=== PATIENT | female | born 1965 | race Hispanic/Latino ===

== ENCOUNTER 2018-07-05 14:13 | Inpatient (IN) | payer BC, OTHER ==
[~2018-07-05] VITALS: Ht 165.1 cm; Wt 91.2 kg
[2018-07-05 14:57] LABS: BASOPHILS % (AUTO) 0.8 % (0.0-5.0); EOSINOPHILS % (AUTO) 0.7 % (0.0-8.0); HEMATOCRIT 37.5 % (36-48); LYMPHOCYTES % (AUTO) 15.8 % (21.0-51.0); MEAN CORPUSCULAR HGB CONC 31.1 g/dL (32.0-36.0); MEAN CORPUSCULAR VOLUME 73.8 fL (79-99); MONOCYTES % (AUTO) 3.5 % (3.0-13.0); NEUTROPHILS % (AUTO) 79.2 % (40.0-77.0); NUCLEATED RED BLOOD CELLS 0.1 % (0.0-0.19); PLATELET COUNT (AUTO) 303 K/uL (130-400); RED BLOOD CELL COUNT(AUTO) 5.08 MIL/uL (4.00-5.50); RED CELL DISTRIBUTION WIDTH 17.2 % (11.0-15.5); WHITE BLOOD COUNT (AUTO) 8.7 K/uL (4.8-10.8)
[2018-07-05] MEDS ORDERED: ACETAMINOPHEN 325 MG TAB ONE (15:05)
[2018-07-05 15:18] LABS: CREATININE 1.1 mg/dL (0.5-1.5); POTASSIUM 4.4 mmol/L (3.5-5.1)
[2018-07-05 15:19] LABS: ALBUMIN 3.4 g/dL (3.5-5.0); BILIRUBIN,DIRECT 0.1 mg/dL (0.0-0.3); BILIRUBIN,TOTAL 0.5 mg/dL (0.2-1.0); TOTAL PROTEIN, SERUM 8.4 g/dL (6.0-8.3)
[2018-07-05 15:28] LABS: APPEARANCE,URINE Clear (CLEAR); BILIRUBIN,URINE Negative (NEGATIVE); COLOR,URINE Yellow (YELLOW); GLUCOSE, URINE (UA) >=1000 mg/dL (NEGATIVE); KETONES,URINE Trace mg/dL (NEGATIVE); LEUKOCYTE ESTERASE ,URINE Negative (NEGATIVE); NITRATE,URINE Negative (NEGATIVE); OCCULT BLOOD,URINE Negative (NEGATIVE); PH,URINE 6.5 (5.0-8.0); PROTEIN,URINE Negative (NEGATIVE); UROBILINOGEN,URINE 0.2 mg/dL (0.2-1.0)
[2018-07-05 15:35] LABS: AMPHET/METH SCREEN,URINE NEGATIVE (NEGATIVE); BARBITURATE SCREEN, URINE NEGATIVE (NEGATIVE); BENZODIAZEPINES SCREEN,URINE NEGATIVE (NEGATIVE); CANNABINOID SCREEN,URINE NEGATIVE (NEGATIVE); COCAINE SCREEN,URINE NEGATIVE (NEGATIVE); OPIATE SCREEN,URINE NEGATIVE (NEGATIVE); PHENCYCLIDINE SCREEN,URINE NEGATIVE (NEGATIVE)
[2018-07-05 15:50] LABS: BACTERIA,URINE Rare /HPF (None Seen); RBC,URINE 0-1 /HPF (0-1); SQUAMOUS EPITHELIAL CELL,UR Rare /HPF (0-2); WBC,URINE 0-1 /HPF (0-1); YEAST,URINE BUDDING Rare /HPF (None Seen)
[2018-07-05] MEDS ORDERED: INSULIN HUMULIN R 100 UNIT/ML 3ML ONE ×2 (16:07→17:37)
[2018-07-05] MEDS ORDERED: SODIUM CHLORIDE 0.9% 1000ML 2,000 ML IV ONE (16:08)
[2018-07-05 16:19] LABS: B-TYPE NATRIURETIC PEPTIDE < 5 pg/mL (0-100)
[2018-07-05 16:26] LABS: ABG BASE EXCESS -0.9 mmol/L (-2.0-3.0); ABG OXYGEN SATURATION 97.5 % (95.0-99.0); ABG PCO2 36 mmHg (32-45)
[2018-07-05] MEDS: SODIUM CHLORIDE 0.9% 1000ML 1,000 ML IV SCH (17:27)
[2018-07-05] MEDS ORDERED: ACETAMINOPHEN 325 MG TAB PO PRN ×2 (17:30)
[2018-07-05] MEDS ORDERED: DIPHENHYDRAMINE HCL 25 MG CAPSULE PO PRN (17:30)
[2018-07-05] MEDS ORDERED: ONDANSETRON HCL 4 MG/2 ML VIAL IV PRN (17:30)
[2018-07-05] MEDS ORDERED: DiphenhydrAMINE HCL 50 MG/ML VIAL IV PRN (17:30)
[2018-07-05] MEDS ORDERED: LIDOCAINE HCL-MPF 1% 2ML VIAL IVP PRN (17:45)
[2018-07-05] MEDS ORDERED: GLUCAGON 1MG KIT 1 MG ML IM PRN (17:45)
[2018-07-05] MEDS ORDERED: POTASSIUM CHLORIDE 20 MEQ ERTAB PO PRN (17:45)
[2018-07-05] MEDS ORDERED: POTASSIUM CHLORIDE 10% ELIXIR 20 MEQ/15 ML UDCUP PO PRN (17:45)
[2018-07-05] MEDS ORDERED: POTASSIUM CHLORIDE 20MEQ/100ML 100 ML IV PRN (17:45)
[2018-07-05] MEDS ORDERED: DEXTROSE 50%-WATER 50 ML DISP.SYRIN IV PRN (17:45)
[2018-07-05] MEDS ORDERED: SODIUM CHLORIDE 0.9% 1000ML 1,000 ML IV ONE (20:06)
[2018-07-05 20:19] LABS: HEMOGLOBIN A1C 13.6 % (4.0-6.0)
[2018-07-05] MEDS ORDERED: INSULIN GLARGINE 100 UNITS/ML 10 ML VIAL SQ SCH (21:00)
[2018-07-05 21:55] VITALS: BP 131/76
[2018-07-05] MEDS: INSULIN HUMULIN R 100 UNIT/ML 3ML SQ SCH (22:52)
[2018-07-05] MEDS: FAMOTIDINE 20MG TAB 20 MG TAB PO SCH (23:04)
[2018-07-05 23:29] VITALS: BP 111/67
[2018-07-06 04:26] VITALS: BP 98/57
[2018-07-06] MEDS: SODIUM CHLORIDE 0.9% 1000ML 1,000 ML IV SCH ×2 (05:36→15:04)
[2018-07-06] MEDS: INSULIN HUMULIN R 100 UNIT/ML 3ML SQ SCH ×4 (06:33→23:20)
[2018-07-06 06:46] LABS: CHOLESTEROL 126 mg/dL (<200); HDL CHOLESTEROL 31 mg/dL (35-85); LDL DIRECT 75 mg/dL (0-99); TRIGLYCERIDES 179 mg/dL (30-200)
[2018-07-06 07:41] VITALS: BP 96/63
[2018-07-06] MEDS ORDERED: INSULIN GLARGINE 100 UNITS/ML 10 ML VIAL SQ SCH ×3 (08:00→20:54)
[2018-07-06] MEDS: FAMOTIDINE 20MG TAB 20 MG TAB PO SCH (08:33)
[2018-07-06 08:35] LABS: CREATININE 0.7 mg/dL (0.5-1.5); POTASSIUM 3.6 mmol/L (3.5-5.1)
[2018-07-06] MEDS: METOCLOPRAMIDE 5 MG TABLET PO SCH ×3 (12:02→18:32)
[2018-07-06 12:17] VITALS: BP 106/69
[2018-07-06] MEDS: PANTOPRAZOLE SODIUM 40 MG TABLET.DR PO SCH (12:50)
--- NOTE | 2018-07-06 14:17 | NUR ---
INITIAL: Met with pt this afternoon to discuss dcp. Pt states that she lives alone. She is independent w ambulation and ADLs. She does not own any DME or receive services. 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 Pt states that she feels safe and comfortable to return home at or. She mentions that if she needs insulin/glucose checks, she is willing to learn. CM to continue to follow and wait for Md recommendations. Addendum: 07/06/18 at 1419 by FRANKO FERRARO CM Amended: Links added.
[2018-07-06 19:40] VITALS: BP 116/66
[2018-07-06 23:44] VITALS: BP 126/76
[2018-07-07] MEDS: SODIUM CHLORIDE 0.9% 1000ML 1,000 ML IV SCH ×3 (02:24→18:17)
[2018-07-07 03:25] VITALS: BP 122/59
[2018-07-07] MEDS: INSULIN HUMULIN R 100 UNIT/ML 3ML SQ SCH ×4 (06:34→21:00)
[2018-07-07 06:35] LABS: HEMATOCRIT 31.5 % (36-48); MEAN CORPUSCULAR HEMOGLOBIN 22.9 pg (27.0-33.0); MEAN CORPUSCULAR HGB CONC 32.1 g/dL (32.0-36.0); MEAN CORPUSCULAR VOLUME 71.1 fL (79-99); PLATELET COUNT (AUTO) 235 K/uL (130-400); RED BLOOD CELL COUNT(AUTO) 4.43 MIL/uL (4.00-5.50); RED CELL DISTRIBUTION WIDTH 17.8 % (11.0-15.5); WHITE BLOOD COUNT (AUTO) 6.5 K/uL (4.8-10.8)
[2018-07-07 06:44] LABS: CREATININE 0.6 mg/dL (0.5-1.5)
[2018-07-07 07:47] VITALS: BP 100/68
--- NOTE | 2018-07-07 08:30 | NUR ---
INSTRUCTIONS WERE GIVEN ON DIABETES AND LIFESTYLE CHANGES. RETURNED UNDERSTANDING.
[2018-07-07] MEDS ORDERED: ROSU5TAB11 PO (08:31)
[2018-07-07] MEDS ORDERED: LISI2.5T2 PO (08:31)
[2018-07-07] MEDS: METOCLOPRAMIDE 5 MG TABLET PO SCH ×3 (08:58→17:00)
[2018-07-07] MEDS: PANTOPRAZOLE SODIUM 40 MG TABLET.DR PO SCH (08:58)
[2018-07-07] MEDS: POTASSIUM CHLORIDE 20 MEQ ERTAB PO SCH ×3 (09:00→22:36)
[2018-07-07 11:46] VITALS: BP 107/62
[2018-07-07 16:11] VITALS: BP 119/61
[2018-07-07] MEDS ORDERED: INSULIN GLARGINE 100 UNITS/ML 10 ML VIAL SQ SCH (16:45)
[2018-07-07 20:41] VITALS: BP 127/70
[2018-07-08 00:26] VITALS: BP 125/77
[2018-07-08 03:37] VITALS: BP 111/66
[2018-07-08] MEDS: SODIUM CHLORIDE 0.9% 1000ML 1,000 ML IV SCH (04:39)
[2018-07-08 06:08] LABS: CREATININE 0.5 mg/dL (0.5-1.5); POTASSIUM 3.6 mmol/L (3.5-5.1)
[2018-07-08] MEDS: INSULIN HUMULIN R 100 UNIT/ML 3ML SQ SCH ×3 (06:53→18:26)
[2018-07-08] MEDS: METOCLOPRAMIDE 5 MG TABLET PO SCH ×3 (06:53→17:00)
[2018-07-08 07:30] VITALS: BP 104/68
[2018-07-08] MEDS: POTASSIUM CHLORIDE 20 MEQ ERTAB PO SCH ×2 (08:27→14:00)
[2018-07-08] MEDS: PANTOPRAZOLE SODIUM 40 MG TABLET.DR PO SCH (08:27)
[2018-07-08 11:00] VITALS: BP 115/71
[2018-07-08] MEDS ORDERED: INSLAN SQ (14:11)
[2018-07-08 16:00] VITALS: BP 113/70
--- NOTE | 2018-07-08 16:49 | NUR ---
Diet education RD provided Diabetes Diet education. RD reviewed reference materials and handouts with patient. Patient with many questions. RD answered all of patient's questions. Patient verbalized understanding. RD to continue to monitor. Please notify RD as additional nutritional concerns arise. Thank you. Addendum: 07/08/18 at [address] RD Amended: Links added.
[2018-07-09] MEDS ORDERED: INSULIN GLARGINE 100 UNITS/ML 10 ML VIAL SQ ONE (08:00)
== END 2018-07-08 19:00 | disposition home or self-care (01) | DRG 640 ==
LOC: EDH 14:13 → EDHIP 14:14 → 3CH 20:09
PROVIDERS: ADMIT Internal Medicine; ATTEND Internal Medicine
DX: E86.0 Dehydration (principal); E11.00 Type 2 diabetes mellitus with hyperosmolarity without nonketotic hyperglycemic-hyperosmolar coma (NKHHC); E11.43 Type 2 diabetes mellitus with diabetic autonomic (poly)neuropathy; K31.84 Gastroparesis; Z79.4 Long term (current) use of insulin; Z83.3 Family history of diabetes mellitus; Z79.899 Other long term (current) drug therapy
CPT/HCPCS: 36415; 36600; 74176; 80048; 80061; 80076; 80305; 81001; 82150; 82550; 82803; 82948; 83036; 83605; 83690; 83880; 84484; 85025; 85027; 93005; G0378; J1815; J3480; J3490; J7030

== ENCOUNTER 2019-06-07 12:03 | Emergency (ER) | payer BC, OTHER ==
[~2019-06-07 12:03] MED LIST: INSLAN SQ; LISI2.5T2 PO; ROSU5TAB12 PO
[2019-06-07 12:33] LABS: APPEARANCE,URINE Cloudy (CLEAR); BILIRUBIN,URINE Negative (NEGATIVE); COLOR,URINE Yellow (YELLOW); GLUCOSE, URINE (UA) >=1000 mg/dL (NEGATIVE); KETONES,URINE 40 mg/dL (NEGATIVE); LEUKOCYTE ESTERASE ,URINE Small (NEGATIVE); NITRATE,URINE Negative (NEGATIVE); OCCULT BLOOD,URINE Negative (NEGATIVE); PROTEIN,URINE Trace mg/dL (NEGATIVE)
[2019-06-07 12:45] LABS: BACTERIA,URINE Few /HPF (None Seen); RBC,URINE None Seen /HPF (0-1); YEAST,URINE BUDDING Moderate /HPF (None Seen)
[2019-06-07 12:49] LABS: BASOPHILS % (AUTO) 0.4 % (0.0-5.0); EOSINOPHILS % (AUTO) 1.8 % (0.0-8.0); HEMATOCRIT 37.5 % (36-48); LYMPHOCYTES % (AUTO) 29.1 % (21.0-51.0); MEAN CORPUSCULAR HEMOGLOBIN 22.3 pg (27.0-33.0); MEAN CORPUSCULAR HGB CONC 30.1 g/dL (32.0-36.0); MONOCYTES % (AUTO) 4.6 % (3.0-13.0); NEUTROPHILS % (AUTO) 63.8 % (40.0-77.0); PLATELET COUNT (AUTO) 324 K/uL (130-400); RED BLOOD CELL COUNT(AUTO) 5.07 MIL/uL (4.00-5.50); RED CELL DISTRIBUTION WIDTH 16.6 % (11.0-15.5); WHITE BLOOD COUNT (AUTO) 7.6 K/uL (4.8-10.8)
[2019-06-07] MEDS ORDERED: INSULIN HUMULIN R 100 UNIT/ML 3ML ONE (12:50)
[2019-06-07 13:03] LABS: CREATININE 0.8 mg/dL (0.5-1.5); POTASSIUM 3.7 mmol/L (3.5-5.1)
[2019-06-07 13:07] LABS: ALBUMIN 3.2 g/dL (3.5-5.0); BILIRUBIN,TOTAL 0.3 mg/dL (0.2-1.0); TOTAL PROTEIN, SERUM 7.8 g/dL (6.0-8.3)
== END 2019-06-07 14:56 | disposition home or self-care (01) ==
LOC: EDH 12:03
DX: E11.65 Type 2 diabetes mellitus with hyperglycemia (principal); F32.9 Major depressive disorder, single episode, unspecified; Z79.84 Long term (current) use of oral hypoglycemic drugs
CPT/HCPCS: 36415; 80053; 81001; 82010; 82948 ×2; 83605; 85025; 87088; 96361; 96374; 99283; J1815

== ENCOUNTER 2019-11-12 12:40 | Emergency (ER) | payer OTHER ==
[2019-11-12] MEDS ORDERED: MORPHINE SULFATE 4 MG/1ML SYG ONE ×2 (13:23→17:08)
[2019-11-12 13:27] LABS: BASOPHILS % (AUTO) 0.5 % (0.0-5.0); EOSINOPHILS % (AUTO) 0.3 % (0.0-8.0); HEMATOCRIT 40.8 % (36-48); LYMPHOCYTES % (AUTO) 15.4 % (21.0-51.0); MEAN CORPUSCULAR HGB CONC 32.1 g/dL (32.0-36.0); MEAN CORPUSCULAR VOLUME 77.9 fL (79-99); NEUTROPHILS % (AUTO) 75.1 % (40.0-77.0); PLATELET COUNT (AUTO) 298 K/uL (130-400); RED BLOOD CELL COUNT(AUTO) 5.24 MIL/uL (4.00-5.50); RED CELL DISTRIBUTION WIDTH 14.6 % (11.0-15.5); WHITE BLOOD COUNT (AUTO) 10.8 K/uL (4.8-10.8)
[2019-11-12 13:57] LABS: CREATININE 0.8 mg/dL (0.5-1.5); POTASSIUM 3.7 mmol/L (3.5-5.1)
[2019-11-12 14:03] LABS: ALBUMIN 2.7 g/dL (3.5-5.0); BILIRUBIN,TOTAL 0.7 mg/dL (0.2-1.0); TOTAL PROTEIN, SERUM 7.7 g/dL (6.0-8.3)
[2019-11-12] MEDS ORDERED: LIDOCAINE HCL 2% VISCOUS 15 ML UDCUP ONE (14:29)
[2019-11-12] MEDS ORDERED: MAG HYDROX/AL HYDROX/SIMETH ES 30 ML SUSP UDCUP ONE (14:29)
[2019-11-12] MEDS ORDERED: ONDANSETRON HCL 4 MG/2 ML VIAL ONE (14:29)
[2019-11-12] MEDS ORDERED: FAMOTIDINE/PF 20 MG/2 ML VIAL IV ONE (14:30)
[2019-11-12] MEDS ORDERED: SODIUM CHLORIDE 0.9% 1000ML 1,000 ML IV ONE ×2 (15:15→19:07)
[2019-11-12] MEDS ORDERED: INSULIN HUMULIN R 100 UNIT/ML 3ML ONE (15:15)
[2019-11-12] MEDS ORDERED: IOHEXOL-350 75 ML VIAL IV ONE (16:04)
[2019-11-12 16:46] LABS: APPEARANCE,URINE Clear (CLEAR); BILIRUBIN,URINE Negative (NEGATIVE); COLOR,URINE Yellow (YELLOW); GLUCOSE, URINE (UA) >=1000 mg/dL (NEGATIVE); KETONES,URINE >=80 mg/dL (NEGATIVE); LEUKOCYTE ESTERASE ,URINE Trace (NEGATIVE); NITRATE,URINE Negative (NEGATIVE); OCCULT BLOOD,URINE Negative (NEGATIVE); PH,URINE 6.5 (5.0-8.0); PROTEIN,URINE POS 1+ mg/dL (NEGATIVE)
[2019-11-12 16:54] LABS: BACTERIA,URINE Few /HPF (None Seen); RBC,URINE 0-1 /HPF (0-1)
[2019-11-12 16:55] LABS: MUCUS,URINE Rare LPF (None Seen); SQUAMOUS EPITHELIAL CELL,UR Few /HPF (0-2)
[2019-11-12] MEDS ORDERED: ZOSYN 3.375GM+NS 50ML 50 ML IV ONE (18:27)
== END 2019-11-12 22:51 | disposition short-term general hospital (02) ==
LOC: EDH 12:40
DX: K86.2 Cyst of pancreas (principal); K56.699 Other intestinal obstruction unspecified as to partial versus complete obstruction; E11.65 Type 2 diabetes mellitus with hyperglycemia; E86.0 Dehydration; F32.9 Major depressive disorder, single episode, unspecified; Z79.84 Long term (current) use of oral hypoglycemic drugs; Z86.19 Personal history of other infectious and parasitic diseases
CPT/HCPCS: 36415; 74177; 80053; 81001; 82550; 83605; 83690; 84484; 85025; 87088; 93005; 96361; 96365; 96375; 96376; 99285; J1815; J2270 ×2; J2405; J2543; J3490; J7030 ×2; Q9967

== ENCOUNTER 2019-12-07 13:46 | Emergency (ER) | payer OTHER ==
[2019-12-07] MEDS ORDERED: IOHEXOL 350 MG/ML 100ML INFUS..BTL IV ONE (14:29)
[2019-12-07] MEDS ORDERED: ONDANSETRON HCL 4 MG/2 ML VIAL ONE (14:40)
[2019-12-07] MEDS ORDERED: SODIUM CHLORIDE 0.9% 1000ML 1,000 ML IV ONE ×2 (14:40→16:05)
[2019-12-07] MEDS ORDERED: MORPHINE SULFATE 4 MG/1ML SYG ONE (14:40)
[2019-12-07 14:50] LABS: BASOPHILS % (AUTO) 0.6 % (0.0-5.0); EOSINOPHILS % (AUTO) 1.3 % (0.0-8.0); HEMATOCRIT 33.8 % (36-48); LYMPHOCYTES % (AUTO) 28.3 % (21.0-51.0); MEAN CORPUSCULAR HGB CONC 31.1 g/dL (32.0-36.0); MEAN CORPUSCULAR VOLUME 77.2 fL (79-99); MONOCYTES % (AUTO) 13.7 % (3.0-13.0); NEUTROPHILS % (AUTO) 54.6 % (40.0-77.0); PLATELET COUNT (AUTO) 322 K/uL (130-400); RED BLOOD CELL COUNT(AUTO) 4.38 MIL/uL (4.00-5.50); RED CELL DISTRIBUTION WIDTH 14.4 % (11.0-15.5); WHITE BLOOD COUNT (AUTO) 7.2 K/uL (4.8-10.8)
[2019-12-07 14:57] LABS: APPEARANCE,URINE CLOUDY (CLEAR); BILIRUBIN,URINE MODERATE (NEGATIVE); COLOR,URINE YELLOW (YELLOW); GLUCOSE, URINE (UA) 100 mg/dL (NEGATIVE); KETONES,URINE 15 mg/dL (NEGATIVE); LEUKOCYTE ESTERASE ,URINE TRACE (NEGATIVE); NITRATE,URINE NEGATIVE (NEGATIVE); OCCULT BLOOD,URINE NEGATIVE (NEGATIVE); PROTEIN,URINE 100 mg/dL (NEGATIVE)
[2019-12-07 15:02] LABS: CREATININE 0.7 mg/dL (0.5-1.5); POTASSIUM 3.4 mmol/L (3.5-5.1)
[2019-12-07 15:03] LABS: INR 1.04 (0.85-1.15); PARTIAL THROMBOPLASTIN TIME 25.7 SEC (26.3-35.5); PROTHROMBIN TIME 11.2 SEC (9.6-11.6)
[2019-12-07 15:06] LABS: ALBUMIN 2.3 g/dL (3.5-5.0); BILIRUBIN,TOTAL 0.4 mg/dL (0.2-1.0); TOTAL PROTEIN, SERUM 8.4 g/dL (6.0-8.3)
[2019-12-07 15:14] LABS: BACTERIA,URINE Few /HPF (None Seen); MUCUS,URINE Many LPF (None Seen); SQUAMOUS EPITHELIAL CELL,UR Many /HPF (0-2)
[2019-12-07] MEDS ORDERED: ZOSYN 3.375GM+NS 50ML 50 ML IV ONE (15:17)
== END 2019-12-07 19:38 | disposition short-term general hospital (02) ==
LOC: EDH 13:46
DX: K86.9 Disease of pancreas, unspecified (principal); K91.89 Other postprocedural complications and disorders of digestive system; R11.2 Nausea with vomiting, unspecified; R19.7 Diarrhea, unspecified; Z20.828 Contact with and (suspected) exposure to other viral communicable diseases; E11.9 Type 2 diabetes mellitus without complications; F32.9 Major depressive disorder, single episode, unspecified; Z98.890 Other specified postprocedural states
CPT/HCPCS: 36415; 74177; 80053; 81001; 82550; 83690; 84484; 85025; 85610; 85730; 87040 ×2; 87426; 96361; 96365; 96375; 99285; J2270; J2405; J2543; J7030 ×2; Q9967; U0003

== ENCOUNTER 2019-12-22 16:05 | Emergency (ER) | payer OTHER | END 2019-12-22 16:53 | disposition left against medical advice (07) | LOC: EDH 16:05 | DX: E11.65 Type 2 diabetes mellitus with hyperglycemia (principal); F32.9 Major depressive disorder, single episode, unspecified; Z98.890 Other specified postprocedural states; Z86.19 Personal history of other infectious and parasitic diseases | CPT/HCPCS: 82948; 99282 ==

== ENCOUNTER 2020-02-22 09:22 | Inpatient (IN) | payer BC, OTHER ==
[~2020-02-22] VITALS: Ht 162.6 cm; Wt 86.4 kg
[2020-02-22] MEDS ORDERED: ONDANSETRON HCL 4 MG/2 ML VIAL ONE (10:20)
[2020-02-22] MEDS ORDERED: HYDROMORPHONE HCL 0.5 MG/0.5 ML ML ONE (10:20)
[2020-02-22 10:39] LABS: BASOPHILS % (AUTO) 0.7 % (0.0-5.0); EOSINOPHILS % (AUTO) 0.6 % (0.0-8.0); HEMATOCRIT 37.8 % (36-48); LYMPHOCYTES % (AUTO) 30.1 % (21.0-51.0); MEAN CORPUSCULAR HEMOGLOBIN 23.2 pg (27.0-33.0); MEAN CORPUSCULAR HGB CONC 30.7 g/dL (32.0-36.0); MEAN CORPUSCULAR VOLUME 75.8 fL (79-99); MONOCYTES % (AUTO) 6.2 % (3.0-13.0); NEUTROPHILS % (AUTO) 62.1 % (40.0-77.0); PLATELET COUNT (AUTO) 483 K/uL (130-400); RED BLOOD CELL COUNT(AUTO) 4.99 MIL/uL (4.00-5.50); RED CELL DISTRIBUTION WIDTH 16.2 % (11.0-15.5); WHITE BLOOD COUNT (AUTO) 6.8 K/uL (4.8-10.8)
[2020-02-22 11:20] LABS: ALBUMIN 3.5 g/dL (3.5-5.0); BILIRUBIN,TOTAL 0.4 mg/dL (0.2-1.0); CREATININE 0.7 mg/dL (0.5-1.5); POTASSIUM 3.7 mmol/L (3.5-5.1); TOTAL PROTEIN, SERUM 8.5 g/dL (6.0-8.3)
[2020-02-22] MEDS ORDERED: ACETAMINOPHEN 325 MG TAB PO PRN (14:45)
[2020-02-22] MEDS ORDERED: LACTULOSE 20 GM/30 ML UDCUP PO PRN (14:45)
[2020-02-22] MEDS ORDERED: FAMOTIDINE/PF 20 MG/2 ML VIAL IV ONE (19:57)
[2020-02-22] MEDS: FAMOTIDINE/PF 20 MG/2 ML VIAL IV SCH (21:00)
[2020-02-23] MEDS ORDERED: KETOROLAC TROMETHAMINE 15MG/ML ONE (00:12)
[2020-02-23 03:15] VITALS: BP 111/55
[2020-02-23] MEDS ORDERED: SAXA1TBM2 PO (03:16)
[2020-02-23] MEDS: LACTATED RINGERS 1000ML 1,000 ML IV SCH ×2 (03:45→07:25)
[2020-02-23 06:58] LABS: BASOPHILS % (AUTO) 0.8 % (0.0-5.0); EOSINOPHILS % (AUTO) 2.9 % (0.0-8.0); HEMATOCRIT 35.5 % (36-48); LYMPHOCYTES % (AUTO) 44.4 % (21.0-51.0); MEAN CORPUSCULAR HEMOGLOBIN 23.4 pg (27.0-33.0); MEAN CORPUSCULAR VOLUME 75.5 fL (79-99); MONOCYTES % (AUTO) 6.9 % (3.0-13.0); NEUTROPHILS % (AUTO) 44.5 % (40.0-77.0); PLATELET COUNT (AUTO) 416 K/uL (130-400); RED CELL DISTRIBUTION WIDTH 16.3 % (11.0-15.5); WHITE BLOOD COUNT (AUTO) 6.2 K/uL (4.8-10.8)
[2020-02-23] MEDS: KETOROLAC TROMETHAMINE 15MG/ML IV PRN ×2 (07:06→21:45)
[2020-02-23] MEDS: METFORMIN HCL 500 MG TABLET PO SCH ×2 (07:06→17:00)
[2020-02-23 07:31] LABS: ALBUMIN 2.8 g/dL (3.5-5.0); BILIRUBIN,TOTAL 0.3 mg/dL (0.2-1.0); CREATININE 0.7 mg/dL (0.5-1.5); POTASSIUM 3.7 mmol/L (3.5-5.1); TOTAL PROTEIN, SERUM 7.2 g/dL (6.0-8.3)
[2020-02-23 08:11] VITALS: BP 109/64
[2020-02-23] MEDS ORDERED: SAXAGLIPTIN HCL PO SCH (09:00)
[2020-02-23] MEDS ORDERED: METFORMIN HCL PO SCH (09:00)
[2020-02-23] MEDS ORDERED: [UNRECOGNIZED DRUG - OTHER] PO SCH (09:00)
[2020-02-23] MEDS: FAMOTIDINE/PF 20 MG/2 ML VIAL IV SCH ×2 (09:30→20:50)
[2020-02-23] MEDS: LINAGLIPTIN 5 MG TABLET PO SCH (09:30)
[2020-02-23 11:37] VITALS: BP 93/59
[2020-02-23 17:01] VITALS: BP 102/63
[2020-02-23] MEDS ORDERED: HYDROMORPHONE 1 MG/1 ML AMP IVP PRN (17:15)
[2020-02-23 20:00] VITALS: BP 104/62
[2020-02-23 23:46] VITALS: BP 102/62
[2020-02-24] VITALS (14 sets, daily range): BP systolic 93–115; BP diastolic 41–70
[2020-02-24] MEDS: LACTATED RINGERS 1000ML 1,000 ML IV SCH ×2 (00:19→16:07)
[2020-02-24 05:48] LABS: BASOPHILS % (AUTO) 0.9 % (0.0-5.0); EOSINOPHILS % (AUTO) 2.5 % (0.0-8.0); HEMATOCRIT 32.3 % (36-48); LYMPHOCYTES % (AUTO) 53.6 % (21.0-51.0); MEAN CORPUSCULAR HEMOGLOBIN 23.7 pg (27.0-33.0); MEAN CORPUSCULAR HGB CONC 30.7 g/dL (32.0-36.0); MEAN CORPUSCULAR VOLUME 77.3 fL (79-99); NEUTROPHILS % (AUTO) 34.8 % (40.0-77.0); PLATELET COUNT (AUTO) 359 K/uL (130-400); RED BLOOD CELL COUNT(AUTO) 4.18 MIL/uL (4.00-5.50); RED CELL DISTRIBUTION WIDTH 16.1 % (11.0-15.5); WHITE BLOOD COUNT (AUTO) 4.4 K/uL (4.8-10.8)
[2020-02-24 06:21] LABS: ALBUMIN 2.7 g/dL (3.5-5.0); BILIRUBIN,TOTAL 0.3 mg/dL (0.2-1.0); CREATININE 0.7 mg/dL (0.5-1.5); POTASSIUM 3.4 mmol/L (3.5-5.1); TOTAL PROTEIN, SERUM 6.7 g/dL (6.0-8.3)
[2020-02-24] MEDS: LINAGLIPTIN 5 MG TABLET PO SCH (07:47)
[2020-02-24] MEDS: METFORMIN HCL 500 MG TABLET PO SCH ×2 (07:47→16:10)
[2020-02-24 08:00] LABS: INR 1.1 (0.85-1.15); PROTHROMBIN TIME 11.7 SEC (9.6-11.6)
[2020-02-24] MEDS: FAMOTIDINE/PF 20 MG/2 ML VIAL IV SCH ×2 (08:47→20:58)
[2020-02-24] MEDS ORDERED: LIDOCAINE PF 2% 5ML ABBOJECT ONE ×2 (10:53→13:12)
[2020-02-24] MEDS ORDERED: GLYCOPYRROLATE 1 MG/5 ML SYRINGE ONE ×2 (10:53→13:50)
[2020-02-24] MEDS ORDERED: ONDANSETRON HCL 4 MG/2 ML VIAL ONE ×2 (10:53→13:50)
[2020-02-24] MEDS ORDERED: DEXAMETHASONE SOD PHOSPHATE 10MG/ML 1ML VIAL ONE (10:53)
[2020-02-24] MEDS ORDERED: SUCCINYLCHOLINE CHLORIDE 20 MG/ML 10 ML VIAL ONE ×2 (10:53→13:12)
[2020-02-24] MEDS ORDERED: MIDAZOLAM HCL 1 MG/ML 2ML VIAL ONE ×3 (10:54→18:40)
[2020-02-24] MEDS ORDERED: PROPOFOL 10 MG/ML 20ML VIAL IV ONE ×2 (10:54→13:12)
[2020-02-24] MEDS ORDERED: FENTANYL CITRATE PF 50 MCG/1 ML 2ML VIAL ONE ×2 (10:54→14:26)
[2020-02-24] MEDS ORDERED: ROCURONIUM 10MG/1ML SYR 10 MG/ML ML ONE ×3 (10:54→14:22)
[2020-02-24] MEDS ORDERED: NEOSTIGMINE 5MG/5ML SYR IV ONE ×2 (10:54→13:50)
[2020-02-24] MEDS ORDERED: SODIUM CHLORIDE 0.9% 1000ML 1,000 ML IV ONE (12:48)
[2020-02-24] MEDS: ZOSYN 3.375GM+NS 50ML 50 ML IV ONE (13:22)
[2020-02-24] MEDS ORDERED: ROPIVACAINE 0.5% 5MG/ML 30ML IJ ONE ×2 (13:34→16:01)
[2020-02-24] MEDS ORDERED: NEOMY SULF/POLYMYXIN B SULFATE 1 ML AMPUL IR ONE (14:21)
[2020-02-24] MEDS ORDERED: ALBUMIN (HUMAN) 5% 250 ML IV ONE ×3 (14:27→18:21)
[2020-02-24] MEDS ORDERED: METHYLENE BLUE 5 MG/ML AMP ONE (16:22)
[2020-02-24] MEDS ORDERED: MEPERIDINE-PF 25 MG/ML SYG ONE (18:22)
[2020-02-24] MEDS ORDERED: NOREPINEPHRINE 4MG/NS 250ML 250 ML IV SCH (18:30)
[2020-02-24] MEDS: SODIUM CHLORIDE 0.9% 1000ML 1,000 ML IV SCH ×2 (18:41→19:30)
[2020-02-24] MEDS ORDERED: MORPHINE SULFATE 2 MG/ML 1ML SYG IVP PRN (19:30)
[2020-02-24 19:56] LABS: CREATININE 0.7 mg/dL (0.5-1.5); POTASSIUM 3.7 mmol/L (3.5-5.1)
[2020-02-24 19:59] LABS: ALBUMIN 3.1 g/dL (3.5-5.0); BILIRUBIN,TOTAL 0.5 mg/dL (0.2-1.0); TOTAL PROTEIN, SERUM 6.2 g/dL (6.0-8.3)
[2020-02-24] MEDS ORDERED: MIDAZOLAM HCL 1 MG/ML 2ML VIAL IVP ONE (20:00)
[2020-02-24] MEDS ORDERED: MEPERIDINE HCL/PF 25 MG/0.5 ML AMPUL IVP ONE (20:00)
[2020-02-24 20:30] LABS: BASOPHILS % (AUTO) 0.3 % (0.0-5.0); EOSINOPHILS % (AUTO) 0.9 % (0.0-8.0); HEMATOCRIT 31.7 % (36-48); LYMPHOCYTES % (AUTO) 10.5 % (21.0-51.0); MEAN CORPUSCULAR HEMOGLOBIN 23.4 pg (27.0-33.0); MEAN CORPUSCULAR HGB CONC 29.3 g/dL (32.0-36.0); MEAN CORPUSCULAR VOLUME 79.6 fL (79-99); MONOCYTES % (AUTO) 5.9 % (3.0-13.0); NEUTROPHILS % (AUTO) 82.1 % (40.0-77.0); PLATELET COUNT (AUTO) 505 K/uL (130-400); RED BLOOD CELL COUNT(AUTO) 3.98 MIL/uL (4.00-5.50); RED CELL DISTRIBUTION WIDTH 16.1 % (11.0-15.5); WHITE BLOOD COUNT (AUTO) 11.8 K/uL (4.8-10.8)
[2020-02-24] MEDS: ONDANSETRON HCL 4 MG/2 ML VIAL IV PRN (21:28)
[2020-02-25] VITALS (16 sets, daily range): BP systolic 112–128; BP diastolic 64–80
[2020-02-25 00:02] LABS: APPEARANCE,URINE Clear (CLEAR); BILIRUBIN,URINE Negative (NEGATIVE); COLOR,URINE Yellow (YELLOW); GLUCOSE, URINE (UA) Negative (NEGATIVE); KETONES,URINE >=160 mg/dL (NEGATIVE); LEUKOCYTE ESTERASE ,URINE Negative (NEGATIVE); NITRATE,URINE Negative (NEGATIVE); OCCULT BLOOD,URINE Negative (NEGATIVE); PROTEIN,URINE Negative (NEGATIVE)
[2020-02-25] MEDS: ONDANSETRON HCL 4 MG/2 ML VIAL IV PRN ×2 (03:39→09:45)
[2020-02-25 03:58] LABS: BASOPHILS % (AUTO) 0.2 % (0.0-5.0); EOSINOPHILS % (AUTO) 0.9 % (0.0-8.0); HEMATOCRIT 31.9 % (36-48); LYMPHOCYTES % (AUTO) 7.3 % (21.0-51.0); MEAN CORPUSCULAR HEMOGLOBIN 23.4 pg (27.0-33.0); MEAN CORPUSCULAR HGB CONC 29.5 g/dL (32.0-36.0); MEAN CORPUSCULAR VOLUME 79.4 fL (79-99); MONOCYTES % (AUTO) 6.5 % (3.0-13.0); NEUTROPHILS % (AUTO) 84.7 % (40.0-77.0); PLATELET COUNT (AUTO) 423 K/uL (130-400); RED BLOOD CELL COUNT(AUTO) 4.02 MIL/uL (4.00-5.50); RED CELL DISTRIBUTION WIDTH 16.2 % (11.0-15.5); WHITE BLOOD COUNT (AUTO) 17.3 K/uL (4.8-10.8)
[2020-02-25 04:25] LABS: ALBUMIN 3.1 g/dL (3.5-5.0); BILIRUBIN,TOTAL 0.4 mg/dL (0.2-1.0); CREATININE 0.8 mg/dL (0.5-1.5); TOTAL PROTEIN, SERUM 6.6 g/dL (6.0-8.3)
[2020-02-25] MEDS: METFORMIN HCL 500 MG TABLET PO SCH (08:00)
[2020-02-25] MEDS: LINAGLIPTIN 5 MG TABLET PO SCH (08:26)
[2020-02-25] MEDS ORDERED: PANTOPRAZOLE 40 MG/VIAL ONE (09:26)
[2020-02-25] MEDS ORDERED: ZOSYN 3.375GM+NS 50ML 50 ML IV ONE (09:27)
[2020-02-25] MEDS: PANTOPRAZOLE 40 MG/VIAL IVP SCH ×2 (09:34→21:59)
[2020-02-25] MEDS: LACTATED RINGERS 1000ML 1,000 ML IV SCH (09:34)
[2020-02-25] MEDS: ZOSYN 3.375GM+NS 50ML 50 ML IV SCH ×2 (09:34→17:32)
[2020-02-25] MEDS: SCOPOLAMINE HYDROBROMIDE 1 EACH ADH..PATCH TD SCH (09:44)
[2020-02-25] MEDS: MORPHINE SULFATE 4 MG/1ML SYG IV PRN ×4 (09:45→22:07)
[2020-02-25] MEDS ORDERED: FUROSEMIDE 10 MG/ML 4ML VIAL IV SCH (10:15)
[2020-02-25] MEDS ORDERED: GLUCAGON 1MG KIT 1 MG ML IM PRN (10:30)
[2020-02-25] MEDS ORDERED: DEXTROSE 50%-WATER 50 ML DISP.SYRIN IV PRN (10:30)
[2020-02-25] MEDS: INSULIN HUMULIN R 100 UNIT/ML 3ML SQ SCH ×3 (11:30→23:38)
[2020-02-26 00:05] VITALS: BP 138/91
[2020-02-26] MEDS: LACTATED RINGERS 1000ML 1,000 ML IV SCH ×3 (02:05→17:09)
[2020-02-26] MEDS: ZOSYN 3.375GM+NS 50ML 50 ML IV SCH ×3 (02:07→17:36)
[2020-02-26] MEDS: MORPHINE SULFATE 4 MG/1ML SYG IV PRN ×3 (02:31→10:24)
[2020-02-26 04:02] VITALS: BP 120/64
[2020-02-26 05:24] LABS: BASOPHILS % (AUTO) 0.4 % (0.0-5.0); EOSINOPHILS % (AUTO) 0.4 % (0.0-8.0); LYMPHOCYTES % (AUTO) 31.8 % (21.0-51.0); MEAN CORPUSCULAR HEMOGLOBIN 23.4 pg (27.0-33.0); MEAN CORPUSCULAR VOLUME 78.1 fL (79-99); MONOCYTES % (AUTO) 13.4 % (3.0-13.0); NEUTROPHILS % (AUTO) 53.8 % (40.0-77.0); PLATELET COUNT (AUTO) 302 K/uL (130-400); RED BLOOD CELL COUNT(AUTO) 3.33 MIL/uL (4.00-5.50); RED CELL DISTRIBUTION WIDTH 16.9 % (11.0-15.5); WHITE BLOOD COUNT (AUTO) 4.5 K/uL (4.8-10.8)
[2020-02-26 05:50] LABS: CREATININE 0.8 mg/dL (0.5-1.5); MAGNESIUM 1.5 mg/dL (1.80-2.40); POTASSIUM 3.4 mmol/L (3.5-5.1)
[2020-02-26] MEDS: INSULIN HUMULIN R 100 UNIT/ML 3ML SQ SCH ×3 (06:00→18:00)
[2020-02-26 08:00] VITALS: BP 106/76
[2020-02-26] MEDS: PANTOPRAZOLE 40 MG/VIAL IVP SCH ×2 (10:27→21:44)
[2020-02-26 11:00] VITALS: BP 101/53
[2020-02-26] MEDS ORDERED: TRAMADOL HCL 50 MG TABLET PO SCH (11:45)
[2020-02-26 16:00] VITALS: BP 110/64
[2020-02-26] MEDS: MAGNESIUM 2GM PREMIX 50ML 50 ML IV PRN (16:20)
[2020-02-26] MEDS: HYDROMORPHONE 1 MG/1 ML AMP IVP PRN ×2 (16:23→21:45)
[2020-02-26 20:00] VITALS: BP 97/61
[2020-02-26] MEDS: ENOXAPARIN SODIUM 40 MG/0.4 ML SYRINGE SQ SCH (21:44)
[2020-02-26] MEDS: KETOROLAC TROMETHAMINE 30MG/ML IV SCH (22:17)
[2020-02-27] VITALS: BP 91/50
[2020-02-27] MEDS: ZOSYN 3.375GM+NS 50ML 50 ML IV SCH ×3 (01:12→17:11)
[2020-02-27] MEDS: HYDROMORPHONE 1 MG/1 ML AMP IVP PRN ×4 (01:49→17:59)
[2020-02-27 04:00] VITALS: BP 96/56
[2020-02-27 05:57] LABS: ALANINE AMINOTRANSFERASE 17 U/L (12-78); ALBUMIN 2.1 g/dL (3.5-5.0); AMYLASE 18 U/L (25-115); ASPARTATE AMINOTRANSFERASE 11 U/L (10-37); BILIRUBIN,TOTAL 0.3 mg/dL (0.2-1.0); CARBON DIOXIDE 26 mmol/L (21-32); CHLORIDE 112 mmol/L (101-111); CREATININE 0.6 mg/dL (0.5-1.5); GLOMERULAR FILTR. RATE CALC 111 mL/min (>60); GLUCOSE,RANDOM 83 mg/dL (70-105); POTASSIUM 3.1 mmol/L (3.5-5.1); SODIUM SERUM 148 mmol/L (136-145); TOTAL PROTEIN, SERUM 5.8 g/dL (6.0-8.3); UREA NITROGEN, BLOOD 12 mg/dL (7-18)
[2020-02-27 06:00] LABS: LIPASE < 50 U/L (114-286)
[2020-02-27] MEDS: INSULIN HUMULIN R 100 UNIT/ML 3ML SQ SCH ×5 (06:00→21:00)
[2020-02-27] MEDS: KETOROLAC TROMETHAMINE 30MG/ML IV SCH ×3 (06:40→22:02)
[2020-02-27] MEDS ORDERED: LIDOCAINE HCL-MPF 1% 2ML VIAL IV PRN (08:00)
[2020-02-27 08:01] VITALS: BP 94/54
[2020-02-27] MEDS: POTASSIUM CHLORIDE 20MEQ/100ML 100 ML IV PRN (08:55)
[2020-02-27] MEDS: PANTOPRAZOLE 40 MG/VIAL IVP SCH ×3 (09:00→22:01)
[2020-02-27] MEDS ORDERED: NYSTATIN 100000 UNIT/ML 5ML UDCUP PO PRN (10:15)
[2020-02-27 11:04] VITALS: BP 111/60
[2020-02-27] MEDS ORDERED: COMPOUND IV MISC 1 EACH IVSOLN MISC PRN (11:15)
[2020-02-27] MEDS ORDERED: PHARMACY COMMUNICATION MISC SCH (11:15)
[2020-02-27] MEDS: LACTATED RINGERS 1000ML 1,000 ML IV SCH ×3 (11:25→20:36)
[2020-02-27] MEDS: NS IV SCH (12:04)
[2020-02-27] MEDS: FLUCONAZOLE IV SCH (12:04)
[2020-02-27 16:03] VITALS: BP 94/55
[2020-02-27] MEDS ORDERED: SODIUM CHLORIDE 0.9% 1000ML 1,000 ML IV SCH (18:45)
[2020-02-27] MEDS ORDERED: SODIUM CHLORIDE 0.9% 1000ML 1,000 ML IV ONE (18:46)
[2020-02-27 19:30] VITALS: BP 107/62
[2020-02-27] MEDS: ENOXAPARIN SODIUM 40 MG/0.4 ML SYRINGE SQ SCH (22:15)
[2020-02-28] VITALS: BP 102/72
[2020-02-28] MEDS: HYDROMORPHONE 1 MG/1 ML AMP IVP PRN ×3 (00:07→18:30)
[2020-02-28] MEDS ORDERED: ALBUMIN (HUMAN) 5% 500 ML IV ONE (00:15)
[2020-02-28] MEDS: ZOSYN 3.375GM+NS 50ML 50 ML IV SCH ×3 (01:53→17:26)
[2020-02-28 03:57] LABS: HEMATOCRIT 23.4 % (36-48); MEAN CORPUSCULAR HEMOGLOBIN 23.5 pg (27.0-33.0); MEAN CORPUSCULAR HGB CONC 29.5 g/dL (32.0-36.0); MEAN CORPUSCULAR VOLUME 79.9 fL (79-99); RED BLOOD CELL COUNT(AUTO) 2.93 MIL/uL (4.00-5.50); RED CELL DISTRIBUTION WIDTH 16.6 % (11.0-15.5); WHITE BLOOD COUNT (AUTO) 5.6 K/uL (4.8-10.8)
[2020-02-28 04:00] VITALS: BP 95/52
[2020-02-28 04:07] LABS: CREATININE 0.7 mg/dL (0.5-1.5); POTASSIUM 3.4 mmol/L (3.5-5.1)
[2020-02-28] MEDS: POTASSIUM CHLORIDE 20MEQ/100ML 100 ML IV PRN (05:43)
[2020-02-28] MEDS: LACTATED RINGERS 1000ML 1,000 ML IV SCH ×2 (05:53→15:34)
[2020-02-28] MEDS: KETOROLAC TROMETHAMINE 30MG/ML IV SCH ×3 (05:53→21:32)
[2020-02-28] MEDS: INSULIN HUMULIN R 100 UNIT/ML 3ML SQ SCH ×4 (06:08→21:00)
[2020-02-28 08:28] VITALS: BP 100/65
[2020-02-28] MEDS: SCOPOLAMINE HYDROBROMIDE 1 EACH ADH..PATCH TD SCH (08:30)
[2020-02-28] MEDS: PANTOPRAZOLE 40 MG/VIAL IVP SCH ×2 (08:54→21:32)
[2020-02-28 09:12] LABS: HEMATOCRIT 24.7 % (36-48)
[2020-02-28] MEDS ORDERED: IOHEXOL 350 MG/ML 100ML INFUS..BTL IV ONE (10:35)
[2020-02-28] MEDS: FLUCONAZOLE IV SCH (11:13)
[2020-02-28] MEDS: NS IV SCH (11:13)
[2020-02-28 11:52] VITALS: BP 105/68
[2020-02-28 15:26] VITALS: BP 95/54
[2020-02-28 15:57] LABS: CREATININE 0.6 mg/dL (0.5-1.5); POTASSIUM 3.8 mmol/L (3.5-5.1)
[2020-02-28 21:04] VITALS: BP 91/54
[2020-02-28] MEDS: ENOXAPARIN SODIUM 40 MG/0.4 ML SYRINGE SQ SCH (21:34)
[2020-02-28] MEDS ORDERED: ALBUMIN (HUMAN) 5% 250 ML IV SCH (23:30)
[2020-02-29 00:16] VITALS: BP 98/68
[2020-02-29] MEDS: ZOSYN 3.375GM+NS 50ML 50 ML IV SCH ×3 (01:16→17:21)
[2020-02-29] MEDS: LACTATED RINGERS 1000ML 1,000 ML IV SCH ×4 (03:51→15:30)
[2020-02-29 04:13] LABS: BASOPHILS % (AUTO) 0.4 % (0.0-5.0); EOSINOPHILS % (AUTO) 8.4 % (0.0-8.0); HEMATOCRIT 24.1 % (36-48); LYMPHOCYTES % (AUTO) 31.9 % (21.0-51.0); MEAN CORPUSCULAR HEMOGLOBIN 23.5 pg (27.0-33.0); MEAN CORPUSCULAR HGB CONC 29.9 g/dL (32.0-36.0); MEAN CORPUSCULAR VOLUME 78.5 fL (79-99); MONOCYTES % (AUTO) 7.7 % (3.0-13.0); PLATELET COUNT (AUTO) 261 K/uL (130-400); RED BLOOD CELL COUNT(AUTO) 3.07 MIL/uL (4.00-5.50); RED CELL DISTRIBUTION WIDTH 16.1 % (11.0-15.5); WHITE BLOOD COUNT (AUTO) 5.3 K/uL (4.8-10.8)
[2020-02-29 04:19] VITALS: BP 100/65
[2020-02-29 04:21] LABS: CREATININE 0.7 mg/dL (0.5-1.5); POTASSIUM 3.5 mmol/L (3.5-5.1)
[2020-02-29] MEDS: KETOROLAC TROMETHAMINE 30MG/ML IV SCH (05:42)
[2020-02-29] MEDS: INSULIN HUMULIN R 100 UNIT/ML 3ML SQ SCH ×4 (06:28→21:00)
[2020-02-29] MEDS: PANTOPRAZOLE 40 MG/VIAL IVP SCH ×2 (08:02→21:34)
[2020-02-29 08:36] VITALS: BP 103/65
[2020-02-29 11:29] VITALS: BP 103/59
[2020-02-29] MEDS: FLUCONAZOLE IV SCH (12:15)
[2020-02-29] MEDS: NS IV SCH (12:15)
[2020-02-29] MEDS: HYDROMORPHONE 1 MG/1 ML AMP IVP PRN ×2 (12:26→22:07)
[2020-02-29 16:00] VITALS: BP 95/56
[2020-02-29 20:00] VITALS: BP 109/59
[2020-02-29] MEDS: ENOXAPARIN SODIUM 40 MG/0.4 ML SYRINGE SQ SCH (21:35)
[2020-03-01] MEDS: ZOSYN 3.375GM+NS 50ML 50 ML IV SCH ×3 (01:10→17:04)
[2020-03-01] MEDS: POTASSIUM CHLORIDE 20MEQ/100ML 100 ML IV PRN (01:10)
[2020-03-01 01:15] VITALS: BP 94/64
[2020-03-01] MEDS: HYDROMORPHONE 1 MG/1 ML AMP IVP PRN ×3 (03:23→21:24)
[2020-03-01] MEDS: LACTATED RINGERS 1000ML 1,000 ML IV SCH ×3 (03:24→22:16)
[2020-03-01 04:02] LABS: BASOPHILS % (AUTO) 0.4 % (0.0-5.0); EOSINOPHILS % (AUTO) 6.9 % (0.0-8.0); HEMATOCRIT 24.6 % (36-48); LYMPHOCYTES % (AUTO) 36.8 % (21.0-51.0); MEAN CORPUSCULAR HEMOGLOBIN 23.2 pg (27.0-33.0); MEAN CORPUSCULAR HGB CONC 29.3 g/dL (32.0-36.0); MEAN CORPUSCULAR VOLUME 79.4 fL (79-99); MONOCYTES % (AUTO) 7.5 % (3.0-13.0); NEUTROPHILS % (AUTO) 47.6 % (40.0-77.0); PLATELET COUNT (AUTO) 278 K/uL (130-400); RED CELL DISTRIBUTION WIDTH 16.2 % (11.0-15.5)
[2020-03-01 04:04] VITALS: BP 100/50
[2020-03-01 04:30] LABS: CREATININE 0.7 mg/dL (0.5-1.5); POTASSIUM 3.9 mmol/L (3.5-5.1)
[2020-03-01] MEDS: INSULIN HUMULIN R 100 UNIT/ML 3ML SQ SCH ×4 (07:30→21:00)
[2020-03-01 08:00] VITALS: BP 112/56
[2020-03-01] MEDS: PANTOPRAZOLE 40 MG/VIAL IVP SCH ×2 (10:31→21:25)
[2020-03-01 12:00] VITALS: BP 94/53
[2020-03-01] MEDS: NS IV SCH (13:13)
[2020-03-01] MEDS: FLUCONAZOLE IV SCH (13:13)
[2020-03-01 16:00] VITALS: BP 96/60
[2020-03-01 20:00] VITALS: BP 105/65
[2020-03-01] MEDS: ENOXAPARIN SODIUM 40 MG/0.4 ML SYRINGE SQ SCH (21:24)
[2020-03-02] VITALS (7 sets, daily range): BP systolic 96–117; BP diastolic 38–70
[2020-03-02] MEDS: ZOSYN 3.375GM+NS 50ML 50 ML IV SCH ×3 (01:50→19:45)
[2020-03-02] MEDS: HYDROMORPHONE 1 MG/1 ML AMP IVP PRN ×4 (01:51→19:46)
[2020-03-02 04:03] LABS: BASOPHILS % (AUTO) 0.4 % (0.0-5.0); EOSINOPHILS % (AUTO) 6.7 % (0.0-8.0); HEMATOCRIT 22.7 % (36-48); LYMPHOCYTES % (AUTO) 36.6 % (21.0-51.0); MEAN CORPUSCULAR HEMOGLOBIN 23.2 pg (27.0-33.0); MEAN CORPUSCULAR HGB CONC 29.5 g/dL (32.0-36.0); MEAN CORPUSCULAR VOLUME 78.5 fL (79-99); NEUTROPHILS % (AUTO) 47.2 % (40.0-77.0); PLATELET COUNT (AUTO) 265 K/uL (130-400); RED BLOOD CELL COUNT(AUTO) 2.89 MIL/uL (4.00-5.50); RED CELL DISTRIBUTION WIDTH 15.9 % (11.0-15.5); WHITE BLOOD COUNT (AUTO) 4.8 K/uL (4.8-10.8)
[2020-03-02 04:11] LABS: CREATININE 0.7 mg/dL (0.5-1.5); MAGNESIUM 1.4 mg/dL (1.80-2.40); POTASSIUM 3.5 mmol/L (3.5-5.1)
[2020-03-02] MEDS: MAGNESIUM 2GM PREMIX 50ML 50 ML IV PRN (04:32)
[2020-03-02] MEDS: INSULIN HUMULIN R 100 UNIT/ML 3ML SQ SCH ×4 (05:28→20:09)
[2020-03-02] MEDS: POTASSIUM CHLORIDE 20MEQ/100ML 100 ML IV PRN (05:52)
[2020-03-02] MEDS: PANTOPRAZOLE 40 MG/VIAL IVP SCH ×2 (09:14→22:45)
[2020-03-02] MEDS: LACTATED RINGERS 1000ML 1,000 ML IV SCH ×2 (09:26→18:16)
[2020-03-02] MEDS: NS IV SCH (11:43)
[2020-03-02] MEDS: FLUCONAZOLE IV SCH (11:43)
[2020-03-02] MEDS: SCOPOLAMINE HYDROBROMIDE 1 EACH ADH..PATCH TD SCH (11:55)
[2020-03-02] MEDS: ENOXAPARIN SODIUM 40 MG/0.4 ML SYRINGE SQ SCH (19:46)
[2020-03-03] MEDS: ZOSYN 3.375GM+NS 50ML 50 ML IV SCH ×3 (01:23→18:01)
[2020-03-03] MEDS: HYDROMORPHONE 1 MG/1 ML AMP IVP PRN ×4 (02:12→22:33)
[2020-03-03] MEDS ORDERED: POTASSIUM CHLORIDE 10% ELIXIR 20 MEQ/15 ML UDCUP PO PRN (03:45)
[2020-03-03] MEDS ORDERED: POTASSIUM CHLORIDE 20 MEQ ERTAB PO PRN (03:45)
[2020-03-03] MEDS ORDERED: POTASSIUM CHLORIDE 20MEQ/100ML 100 ML IV PRN (03:45)
[2020-03-03] MEDS ORDERED: LIDOCAINE HCL-MPF 1% 2ML VIAL IV PRN (03:45)
[2020-03-03 04:00] VITALS: BP 92/54
[2020-03-03] MEDS: INSULIN HUMULIN R 100 UNIT/ML 3ML SQ SCH ×4 (05:38→20:29)
[2020-03-03 06:21] LABS: BASOPHILS % (AUTO) 0.8 % (0.0-5.0); EOSINOPHILS % (AUTO) 6.9 % (0.0-8.0); HEMATOCRIT 31.4 % (36-48); LYMPHOCYTES % (AUTO) 30.5 % (21.0-51.0); MEAN CORPUSCULAR HEMOGLOBIN 24.1 pg (27.0-33.0); MEAN CORPUSCULAR HGB CONC 30.3 g/dL (32.0-36.0); MEAN CORPUSCULAR VOLUME 79.5 fL (79-99); MONOCYTES % (AUTO) 7.7 % (3.0-13.0); NEUTROPHILS % (AUTO) 51.8 % (40.0-77.0); PLATELET COUNT (AUTO) 318 K/uL (130-400); RED BLOOD CELL COUNT(AUTO) 3.95 MIL/uL (4.00-5.50); RED CELL DISTRIBUTION WIDTH 15.6 % (11.0-15.5); WHITE BLOOD COUNT (AUTO) 6.7 K/uL (4.8-10.8)
[2020-03-03 06:50] LABS: CREATININE 0.7 mg/dL (0.5-1.5); MAGNESIUM 1.6 mg/dL (1.80-2.40); POTASSIUM 3.8 mmol/L (3.5-5.1)
[2020-03-03] MEDS: MAGNESIUM 2GM PREMIX 50ML 50 ML IV PRN (07:29)
[2020-03-03 07:30] VITALS: BP 103/65
[2020-03-03] MEDS: PANTOPRAZOLE 40 MG/VIAL IVP SCH ×2 (10:46→20:14)
[2020-03-03 11:00] VITALS: BP 98/52
[2020-03-03 16:00] VITALS: BP 115/70
[2020-03-03] MEDS: NS IV SCH (16:33)
[2020-03-03] MEDS: FLUCONAZOLE IV SCH (16:33)
[2020-03-03] MEDS: LACTATED RINGERS 1000ML 1,000 ML IV SCH ×2 (18:01→20:15)
[2020-03-03 20:13] VITALS: BP 101/49
[2020-03-03] MEDS: ENOXAPARIN SODIUM 40 MG/0.4 ML SYRINGE SQ SCH (20:15)
[2020-03-03 23:41] VITALS: BP 92/62
[2020-03-04] MEDS: ZOSYN 3.375GM+NS 50ML 50 ML IV SCH ×3 (00:30→18:37)
[2020-03-04 03:46] VITALS: BP 99/59
[2020-03-04] MEDS: INSULIN HUMULIN R 100 UNIT/ML 3ML SQ SCH ×4 (06:02→21:00)
[2020-03-04 06:08] LABS: HEMATOCRIT 31.6 % (36-48); MEAN CORPUSCULAR HEMOGLOBIN 24.4 pg (27.0-33.0); MEAN CORPUSCULAR HGB CONC 30.7 g/dL (32.0-36.0); MEAN CORPUSCULAR VOLUME 79.6 fL (79-99); RED BLOOD CELL COUNT(AUTO) 3.97 MIL/uL (4.00-5.50); RED CELL DISTRIBUTION WIDTH 15.9 % (11.0-15.5); WHITE BLOOD COUNT (AUTO) 6.6 K/uL (4.8-10.8)
[2020-03-04 06:37] LABS: ALBUMIN 2.4 g/dL (3.5-5.0); BILIRUBIN,TOTAL 0.2 mg/dL (0.2-1.0); CREATININE 0.8 mg/dL (0.5-1.5); MAGNESIUM 1.8 mg/dL (1.80-2.40); POTASSIUM 4.1 mmol/L (3.5-5.1); TOTAL PROTEIN, SERUM 6.1 g/dL (6.0-8.3)
[2020-03-04 08:02] VITALS: BP 108/72
[2020-03-04] MEDS: HYDROMORPHONE 1 MG/1 ML AMP IVP PRN ×3 (08:48→19:54)
[2020-03-04] MEDS ORDERED: MAGNESIUM 2GM PREMIX 50ML 50 ML IV PRN (10:30)
[2020-03-04] MEDS: PANTOPRAZOLE 40 MG/VIAL IVP SCH ×2 (11:11→19:37)
[2020-03-04 11:49] VITALS: BP 102/52
[2020-03-04] MEDS: FLUCONAZOLE IV SCH (16:23)
[2020-03-04] MEDS: NS IV SCH (16:23)
[2020-03-04] MEDS: LACTATED RINGERS 1000ML 1,000 ML IV SCH ×2 (16:53→19:37)
[2020-03-04 16:59] VITALS: BP 113/50
[2020-03-04] MEDS: ENOXAPARIN SODIUM 40 MG/0.4 ML SYRINGE SQ SCH (19:38)
[2020-03-04 20:00] VITALS: BP 101/61
[2020-03-04] MEDS: MAGNESIUM 2GM PREMIX 50ML 50 ML IV PRN (21:29)
[2020-03-05] VITALS (7 sets, daily range): BP systolic 92–123; BP diastolic 51–70
[2020-03-05] MEDS: ZOSYN 3.375GM+NS 50ML 50 ML IV SCH ×3 (01:02→17:06)
[2020-03-05] MEDS: LACTATED RINGERS 1000ML 1,000 ML IV SCH ×2 (04:26→16:16)
[2020-03-05] MEDS: HYDROMORPHONE 1 MG/1 ML AMP IVP PRN ×2 (05:05→08:50)
[2020-03-05] MEDS: INSULIN HUMULIN R 100 UNIT/ML 3ML SQ SCH ×4 (05:36→19:53)
[2020-03-05] MEDS: SCOPOLAMINE HYDROBROMIDE 1 EACH ADH..PATCH TD SCH (08:30)
[2020-03-05] MEDS: PANTOPRAZOLE 40 MG/VIAL IVP SCH ×2 (08:49→19:52)
[2020-03-05] MEDS: NS IV SCH (12:00)
[2020-03-05] MEDS: FLUCONAZOLE IV SCH (12:00)
[2020-03-05] MEDS: ENOXAPARIN SODIUM 40 MG/0.4 ML SYRINGE SQ SCH (19:53)
[2020-03-06] MEDS: ZOSYN 3.375GM+NS 50ML 50 ML IV SCH ×3 (00:51→20:56)
[2020-03-06] MEDS: LACTATED RINGERS 1000ML 1,000 ML IV SCH ×2 (02:24→12:16)
[2020-03-06 04:25] VITALS: BP 104/51
[2020-03-06 04:30] LABS: HEMATOCRIT 33.7 % (36-48); MEAN CORPUSCULAR HEMOGLOBIN 24.3 pg (27.0-33.0); MEAN CORPUSCULAR HGB CONC 30.6 g/dL (32.0-36.0); MEAN CORPUSCULAR VOLUME 79.5 fL (79-99); RED BLOOD CELL COUNT(AUTO) 4.24 MIL/uL (4.00-5.50)
[2020-03-06 04:48] LABS: ALBUMIN 2.7 g/dL (3.5-5.0); BILIRUBIN,TOTAL 0.2 mg/dL (0.2-1.0); CREATININE 0.8 mg/dL (0.5-1.5); MAGNESIUM 1.9 mg/dL (1.80-2.40); POTASSIUM 4.1 mmol/L (3.5-5.1); TOTAL PROTEIN, SERUM 6.8 g/dL (6.0-8.3)
[2020-03-06] MEDS: INSULIN HUMULIN R 100 UNIT/ML 3ML SQ SCH ×4 (05:41→20:57)
[2020-03-06 08:00] VITALS: BP 113/68
[2020-03-06] MEDS: HYDROMORPHONE 1 MG/1 ML AMP IVP PRN ×2 (09:33→15:28)
[2020-03-06 12:00] VITALS: BP 104/63
[2020-03-06] MEDS: FLUCONAZOLE IV SCH (14:32)
[2020-03-06] MEDS: NS IV SCH (14:32)
[2020-03-06] MEDS: PANTOPRAZOLE 40 MG/VIAL IVP SCH ×2 (14:33→20:56)
[2020-03-06 16:00] VITALS: BP 101/76
[2020-03-06] MEDS ORDERED: KETOROLAC TROMETHAMINE 15MG/ML IV PRN (16:30)
[2020-03-06 20:34] VITALS: BP 99/54
[2020-03-06] MEDS: ENOXAPARIN SODIUM 40 MG/0.4 ML SYRINGE SQ SCH (20:57)
== END 2020-03-06 23:08 | DRG 329 ==
LOC: EDH 09:22 → EDHIP 14:41 → 3BH 02-23 02:59 → 2DH 02-24 18:24 → 4BH 02-25 18:26 → 4CH 02-29 05:00 → 3DH 03-02 12:39
PROVIDERS: ADMIT Hospitalist; ATTEND Hospitalist
PROC: 0DBF0ZZ Excision of Right Large Intestine, Open Approach (ICD-10-PCS; principal; 2020-02-29)
PROC: 0DTJ0ZZ Resection of Appendix, Open Approach (ICD-10-PCS; 2020-02-29)
PROC: 0FT40ZZ Resection of Gallbladder, Open Approach (ICD-10-PCS; 2020-02-29)
PROC: 0W9H0ZZ Drainage of Retroperitoneum, Open Approach (ICD-10-PCS; 2020-02-29)
PROC: 0DBL0ZZ Excision of Transverse Colon, Open Approach (ICD-10-PCS; 2020-02-29)
PROC: 0DB80ZZ Excision of Small Intestine, Open Approach (ICD-10-PCS; 2020-02-29)
PROC: 30233N1 Transfusion of Nonautologous Red Blood Cells into Peripheral Vein, Percutaneous Approach (ICD-10-PCS; 2020-02-29)
PROC: 02HV33Z Insertion of Infusion Device into Superior Vena Cava, Percutaneous Approach (ICD-10-PCS; 2020-02-29)
DX: K56.609 Unspecified intestinal obstruction, unspecified as to partial versus complete obstruction (principal); K68.19 Other retroperitoneal abscess; J96.91 Respiratory failure, unspecified with hypoxia; K81.0 Acute cholecystitis; K86.1 Other chronic pancreatitis; R18.8 Other ascites; E11.9 Type 2 diabetes mellitus without complications; Z20.822 Contact with and (suspected) exposure to COVID-19; F32.9 Major depressive disorder, single episode, unspecified; R53.81 Other malaise; D64.9 Anemia, unspecified; E87.6 Hypokalemia; E83.42 Hypomagnesemia; K82.8 Other specified diseases of gallbladder; K66.0 Peritoneal adhesions (postprocedural) (postinfection); K57.90 Diverticulosis of intestine, part unspecified, without perforation or abscess without bleeding; M47.815 Spondylosis without myelopathy or radiculopathy, thoracolumbar region; Z90.49 Acquired absence of other specified parts of digestive tract; Z91.19 Patient's noncompliance with other medical treatment and regimen; Z93.3 Colostomy status; Z98.891 History of uterine scar from previous surgery; Z83.3 Family history of diabetes mellitus; Z82.49 Family history of ischemic heart disease and other diseases of the circulatory system
CPT/HCPCS: 36415; 36430; 71045; 74018; 74176; 74177; 80048; 80053; 81003; 82150; 82948; 83690; 83735; 85014; 85018; 85025; 85027; 85610; 85730; 86850; 86900; 86901; 86923; 87426; 93971; 97039; A4344; C9113; G0378; J0330; J1100; J1170; J1450; J1650; J1815; J1885; J1940; J2001; J2175; J2250; J2270; J2405; J2543; J2704; J2710; J2795; J3010; J3475; J3480; J3490; J7030; J7120; P9016; P9045; Q9967; Q9968; U0003

== ENCOUNTER 2020-03-23 17:45 | Emergency (ER) | payer BC ==
[~2020-03-23 17:45] MED LIST changes: -INSLAN SQ; -LISI2.5T2 PO; -ROSU5TAB12 PO; +SAXA1TBM2 PO
[2020-03-23] MEDS ORDERED: LIDOCAINE HCL 2% JELLY 5 ML ONE ×2 (20:26→21:06)
== END 2020-03-23 21:38 | disposition home or self-care (01) ==
LOC: EDH 17:45
DX: L23.1 Allergic contact dermatitis due to adhesives (principal); E11.9 Type 2 diabetes mellitus without complications; Z86.73 Personal history of transient ischemic attack (TIA), and cerebral infarction without residual deficits; Z98.890 Other specified postprocedural states; Z93.3 Colostomy status
CPT/HCPCS: 99282